=== PATIENT | male | born 1980 | race American Indian/Alaskan Native ===

== ENCOUNTER 2018-07-21 13:55 | Emergency (ER) | payer MEDICAID ==
[2018-07-21 14:01] VITALS: BP 155/112
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
--- NOTE | 2018-07-21 17:43 | ASMTCMCOM ---
CM Note CM Note Notes: Pt presented to the ED through triage for frostbite to his toes. Pt accompanied by a couple of friends who are concerned about pt being homeless and not being able to stay at the local custodial. Pt's friend, Brian ([phone]) states that the pt can stay with him tonight and he will help him follow up with [facility] tomorrow. Pt states he has completed CE and was referred to [facility] but needs to meet w/Case Mgmt again in order to stay there again. Pt aware of the [facility] as well. Pt provided info on [facility] and their Homeless Drop-In Hours, various other homelessness resources, [facility] and encouraged to follow up with [facility] Case Mgmt tomorrow. Brian states he can provide transportation for pt to get to [facility] tomorrow. Brian states that [facility] can call him to schedule a follow up appt for the pt. This CM to followup w/PC, patient and Brian tomorrow. Date Signed: 07/21/2018 05:43 PM Electronically Signed By:Yelena Steele RN
--- NOTE | 2018-07-23 19:13 | ASMTCMCOM ---
CM Note CM Note Notes: Late Entry from 07/22/18: (See previous CM Report for background info) CM called and left a voicemail w/[facility] requesting they reach out to the pt via his friend Brian's #. Date Signed: 07/23/2018 07:12 PM Electronically Signed By:Yelena Steele RN
== END 2018-07-21 14:55 | disposition home or self-care (01) ==
DX: M79.671 Pain in right foot (principal); M79.672 Pain in left foot; X31.XXXA Exposure to excessive natural cold, initial encounter; Z59.0 Homelessness